=== PATIENT | female | born 1990 | race Asian ===

== ENCOUNTER 2017-07-21 00:06 | Emergency (ER) | payer OTHER ==
[~2017-07-21] VITALS: Ht 162.6 cm; Wt 55.0 kg
[2017-07-21] MEDS ORDERED: MAGNESIUM/ALUMINUM HYDROXIDE/SIMETHICONE 30ML UDC PO STA (02:32)
[2017-07-21] MEDS ORDERED: SODIUM CHLORIDE 0.9% 1,000 ML IV ONE (02:32)
[2017-07-21] MEDS ORDERED: MORPHINE SULFATE 4 MG/ML CPJ (NOT FOR IM USE) IV STA (02:32)
[2017-07-21] MEDS ORDERED: FAMOTIDINE 20MG/2ML VIAL IV STA (02:32)
[2017-07-21] MEDS ORDERED: ONDANSETRON HCL 4MG/2ML VIAL IV STA (02:32)
[2017-07-21 02:46] LABS: CLARITY URINE CLEAR (CLEAR); COLOR URINE YELLOW (YELLOW); KETONES URINE NEGATIVE (NEGATIVE); LEUKOCYTE ESTERASE URINE 1+ (NEGATIVE); NITRITE URINE NEGATIVE (NEGATIVE); OCCULT BLOOD URINE NEGATIVE (NEGATIVE); PH URINE 6.5 (4.5-8.0); PROTEIN URINE NEGATIVE (NEGATIVE); SPECIFIC GRAVITY URINE 1.013 (1.005-1.030); UROBILINOGEN URINE 0.2 E.U./dL (0.2-1.0)
[2017-07-21 02:53] LABS: BASOPHILS % 0.4 % (0.0-2.0); EOSINOPHILS % 0.7 % (0.0-5.0); HEMATOCRIT. 38.6 % (36.0-48.0); HEMOGLOBIN. 13.2 g/dL (12.0-16.0); LYMPHOCYTES % 29.7 % (20.0-50.0); MEAN CORPUSCULAR HEMOGLOBIN 29.3 pg (28.0-32.0); MEAN CORPUSCULAR VOLUME 85.9 fL (81.0-99.0); MEAN PLATELET VOLUME 8.8 fl (7.4-10.4); MONOCYTES % 4.9 % (2.0-8.0); NEUTROPHILS % 64.3 % (40.0-76.0); PLATELET 264 x1000/uL (130-400); RED CELL DISTRIBUTION WIDTH 13.1 % (11.6-14.6)
[2017-07-21 03:02] LABS: PROTHROMBIN TIME 10.7 sec (9.4-11.6)
[2017-07-21 03:29] LABS: CARBON DIOXIDE 26 mEq/L (21-32); CHLORIDE 107 mEq/L (98-107)
[2017-07-21 05:55] VITALS: BP 117/88
== END 2017-07-21 05:55 | disposition home or self-care (01) ==
LOC: ER 00:06
DX: K29.70 Gastritis, unspecified, without bleeding (principal); N83.202 Unspecified ovarian cyst, left side; E86.0 Dehydration
CPT/HCPCS: 36415; 76700; 76830; 76856; 80053; 81001; 81025; 83690; 85025; 85610; 96361; 96374; 96375; 99285; J2270; J2405; J3490; J7030; Z7610